=== PATIENT | male | born 1975 | race Caucasian/White ===

== ENCOUNTER 2019-05-09 14:33 | Outpatient (CLI) | payer BC, SELFPAY ==
[2019-05-09 14:58] LABS: Influenza Control Valid (Valid)
== END 2019-05-09 14:34 | disposition home or self-care (01) ==
LOC: CHSLAB 14:35
PROVIDERS: PCP Family Medicine; Visit Provider Family Medicine
DX: R05 Cough (principal)
CPT/HCPCS: 87804

== ENCOUNTER 2019-08-29 08:27 | Outpatient (CLI) | payer BC, SELFPAY ==
--- NOTE | ~2019-08-29 | US_ITS ---
EXAMINATION: US scrotum doppler DATE: 08/29/2019 09:21 INDICATION: Disorder of male genital organs with palpable abnormality at the inferior left testis TECHNIQUE: Testicular sonogram utilizing grayscale and Doppler COMPARISON: None. FINDINGS: The right testis measures 4.4 x 2.3 x 3.4 cm. The left testis measures 4.4 x 2.2 x 3.4 cm. Symmetric normal grayscale appearance to both testes. There is normal vascular flow to both testes. The right e pididymis is normal with normal vascular flow. The left epididymis is normal with normal vascular marcia w. There is no varicocele or hydrocele. IMPRESSION: 1. Normal scrotal ultrasound. Reviewed, dictated and finalized at location A.
== END 2019-08-29 08:28 | disposition home or self-care (01) ==
LOC: CHSIMG 08:31
PROVIDERS: PCP Family Medicine; Visit Provider Family Medicine
DX: N50.9 Disorder of male genital organs, unspecified (principal)
CPT/HCPCS: 76870; 93976

== ENCOUNTER 2021-03-31 09:59 | Outpatient (CLI) | payer OTHER, SELFPAY | END 2021-03-31 10:00 | disposition home or self-care (01) | LOC: CHSCARD 10:00 | PROVIDERS: PCP Family Medicine; Visit Provider Family Medicine | DX: R06.00 Dyspnea, unspecified (principal) | CPT/HCPCS: 94060; 94726; 94729 ==

== ENCOUNTER 2023-03-10 10:31 | Outpatient (CLI) | payer OTHER, SELFPAY ==
--- NOTE | ~2023-03-10 | MR_ITS ---
MRI of the cervical spine Clinical History: Cervicalgia Technique: Axial T2-weighted and gradient images, and sagittal T1-weighted, T2-weighted, and STIR bandar ges were acquired. Findings: There is no fracture or sublocation of the cervical spine. Vertebral bodies maintain normal height and alignment. No suspicious bone marrow signal abnormality seen. At C2-C3, there is left foraminal disc osteophyte complex with left facet arthropathy, resulting in s evere left neural foraminal narrowing. Right neural foramen preserved. No central canal stenosis or c ord compression. At C3-C4, there is mild disc osteophyte complex and bilateral facet arthropathy. There is probable mi ld bilateral neural foraminal narrowing. At C4-C5, there is mild disc osteophyte complex and severe right facet arthropathy, with severe right neural foraminal narrowing. No left neural foraminal narrowing or central canal stenosis/cord compre ssion. At C5-C6, there is bilateral facet arthropathy and mild disc osteophyte complex. There is significant bilateral neural foraminal narrowing, probably severe on the left and moderate to severe on the righ t. No central canal stenosis or cord compression. At C6-C7, there is right foraminal disc osteophyte complex resulting in severe right neural foraminal narrowing. There is moderate left neural foraminal narrowing with bilateral facet arthropathy presen t. No central canal stenosis or cord compression. No abnormal signal seen in the spinal cord. Paravertebral soft tissues are unremarkable. Impression: Moderate degenerative spondylosis, with multilevel neural foraminal narrowing, as detailed above. Reviewed, dictated and finalized at [facility]. ONOLOGIST/INTENSIVIST Impression: Moderate degenerative spondylosis, with multilevel neural foraminal narrowing, as detailed above.
== END 2023-03-10 10:32 | disposition home or self-care (01) ==
PROVIDERS: PCP Family Medicine; Visit Provider Family Medicine
DX: M54.2 Cervicalgia (principal); M43.02 Spondylolysis, cervical region
CPT/HCPCS: 72141

== ENCOUNTER 2023-11-29 08:19 | Outpatient (CLI) | payer OTHER, SELFPAY ==
--- NOTE | ~2023-11-29 | NM_ITS ---
EXAM: NM gastric emptying study DATE: 11/29/2023 13:40 INDICATION: Gastroparesis TECHNIQUE: A gastric emptying study was performed using the methodology of Partha MILLER, et al. J Nucl Med 2007; 48:568-572. The patient was given a meal consisting of 2 scrambled eggs labeled with 0.975 mCi Tc-99m sulfur colloid, 2 slices of toast, two packages of jam, and approximately 120 mL of water . Simultaneous anterior and posterior 1-min images of the abdomen were obtained with the patient supi ne at multiple time points over a total period of 4 hours. The geometric mean of anterior and posteri or views was determined, and the percentage retention was calculated for each time point. COMPARISON: None. FINDINGS: Gastric retention of the radiotracer-labeled meal was 50%, 27%, and 6% at the 1-hour, 2-hour, and 4-h our time points, respectively. With this technique, apparent rapid gastric emptying is suggested by < 30% gastric retention at 1 hour. Delayed gastric emptying is defined by gastric retention of >90% at 1 hour, >60% retention at 2 hours, or >10% retention at 4 hours. IMPRESSION: 1. Normal gastric emptying. Reviewed, dictated and finalized at location A. IMPRESSION: 1. Normal gastric emptying.
== END 2023-11-29 08:20 | disposition home or self-care (01) ==
LOC: ANHIMG 08:26
PROVIDERS: PCP Family Medicine; Visit Provider Family Medicine
DX: K31.84 Gastroparesis (principal)
CPT/HCPCS: 78264; A9541